=== PATIENT | female | born 1955 | race Caucasian/White ===

== ENCOUNTER 2022-02-07 07:10 | Day surgery (SDC) | payer MEDICARE ==
[2022-02-07] MEDS ORDERED: Sodium Bicarbonate 2.5 MEQ/5 ML VIAL ONE (08:00)
[2022-02-07] MEDS ORDERED: Lidocaine 1% PF 5 ML VIAL ONE (08:00)
[2022-02-07 08:24] VITALS: BP 131/61; TEMP 97.7
== END 2022-02-07 10:59 | disposition home or self-care (01) ==
LOC: CSHRAD 07:10
PROVIDERS: ATTEND Orthopaedic Surgery
DX: M48.062 Spinal stenosis, lumbar region with neurogenic claudication (principal); M47.26 Other spondylosis with radiculopathy, lumbar region; M47.24 Other spondylosis with radiculopathy, thoracic region; Z88.1 Allergy status to other antibiotic agents
CPT/HCPCS: 62305; 72129; 72132

== ENCOUNTER → 2023-04-24 | Day surgery (SDC) | payer MEDICARE ==
[~2023-04-24] MED LIST: Iopamidol-M 200 41% 10 ML VIAL FS ONE; Lidocaine 1% PF 5 ML VIAL ONE; Sodium Bicarbonate 2.5 MEQ/5 ML VIAL ONE
[2023-04-24 09:36] VITALS: BP 127/61; TEMP 98.6
== END ==
LOC: EDSTATUS 04-04 10:00 → CSHRAD 08:36
PROVIDERS: ATTEND Specialist
DX: M96.1 Postlaminectomy syndrome, not elsewhere classified (principal); M54.17 Radiculopathy, lumbosacral region; I10 Essential (primary) hypertension; E78.5 Hyperlipidemia, unspecified; D64.9 Anemia, unspecified; G47.33 Obstructive sleep apnea (adult) (pediatric); E66.9 Obesity, unspecified; Z68.35 Body mass index [BMI] 35.0-35.9, adult; Z79.01 Long term (current) use of anticoagulants; Z79.84 Long term (current) use of oral hypoglycemic drugs; Z79.891 Long term (current) use of opiate analgesic; Z79.899 Other long term (current) drug therapy; Z86.718 Personal history of other venous thrombosis and embolism; Z86.16 Personal history of COVID-19; Z88.1 Allergy status to other antibiotic agents; Z88.8 Allergy status to other drugs, medicaments and biological substances
CPT/HCPCS: 62304; 72132; Q9966